=== PATIENT | female | born 1990 | race Caucasian/White ===

== ENCOUNTER 2018-03-12 10:04 | Emergency (ER) | payer OTHER ==
[2018-03-12 10:12] VITALS: TEMP 98
[2018-03-12] MEDS ORDERED: SODIUM CHLORIDE 0.9% 1,000 ML IV STA (11:18)
--- NOTE | 2018-03-12 11:19 | ED ---
General Adult HPI - General Chief complaint: Abdominal Pain Stated complaint: flank pain Time Seen by Provider: 03/12/18 10:58 Source: patient, RN notes reviewed Mode of arrival: wheelchair Limitations: no limitations - History of Present Illness Initial comments: Patient's a 27-year-old female presented to the emergency room today with chief complaint of increased urinary frequency and dysuria over the last day. She doesn't that the symptoms started yesterday afternoon. Patient does not that she's been experiencing some right flank pain today. Patient denies any other complaints or symptoms at this time. Patient denies any recent fever, chills, shortness of breath, chest pain, back pain, nausea or vomiting, numbness or tingling, constipation or diarrhea, headaches or visual changes, or any other complaints. - Related Data Home Medications Medication Instructions Recorded Confirmed Estradiol/Norgestimate [Prefest 1 tab PO DAILY 03/12/18 03/12/18 Tablet] Previous Rx's Medication Instructions Recorded Phenazopyridine [Pyridium] 100 mg PO TID 3 Days day 03/12/18 Sulfamethox-Tmp 800-160Mg [Bactrim 1 tab PO Q12HR #28 tab 03/12/18 DS 800-160 mg] Allergies Allergy/AdvReac Type Severity Reaction Status Date / Time No Known Allergies Allergy Verified 03/12/18 11:35 Review of Systems ROS Statement: Those systems with pertinent positive or pertinent negative responses have been documented in the HPI. ROS Other: All systems not noted in ROS Statement are negative. Past Medical History History of Any Multi-Drug Resistant Organisms: None Reported Past Surgical History: Section Past Psychological History: No Psychological Hx Reported Smoking Status: Current every day smoker Past Alcohol Use History: Occasional Past Drug Use History: None Reported General Exam - General Exam Comments Initial Comments: General: The patient is awake and alert, in no distress, and does not appear acutely ill. Eye: There is normal conjunctiva bilaterally. No signs of icterus. Ears, nose, mouth and throat: There are moist mucous membranes and no oral lesions. Neck: The neck is supple, there is no tenderness or JVD. Cardiovascular: There is a regular rate and rhythm. No murmur, rub or gallop is appreciated. Respiratory: Lungs are clear to auscultation, respirations are non-labored, breath sounds are equal. No wheezes, stridor, rales, or rhonchi. Gastrointestinal: Abdomen soft on palpation. Patient does have mild tenderness right lower quadrant. No rebound, guarding or CVA tenderness. Musculoskeletal: Normal ROM, no tenderness. Sensation intact. Strength 5/5. Pulses equal bilaterally 2+. Neurological: A&O x 3. CN II-XII intact, There are no obvious motor or sensory deficits. Coordination appears grossly intact. Speech is normal. Skin: Skin is warm and dry and no rashes or lesions are noted. Psychiatric: Cooperative, appropriate mood & affect, normal judgment. Limitations: no limitations Course Vital Signs 03/12/18 10:09 Temperature 98.0 F Pulse Rate 102 H Respiratory 20 Rate Blood Pressure 139/83 O2 Sat by Pulse 99 Oximetry Medical Decision Making - Medical Decision Making Patient labs been reviewed. Urinalysis does show evidence for urinary tract infection. She does admit to increased dysuria and frequency. Patient's vitals are stable. Patient given dose Rocephin here in the emergency room. Will be continued on antibiotics. Advised follow-up over the next 2 days to have urine re-check. Advised to return if symptoms increase or worsen. - Lab Data Result diagrams: 03/12/18 11:36 03/12/18 11:36 Lab Results 03/12/18 03/12/18 03/12/18 Range/Units 11:36 11:36 11:36 WBC 10.7 H (3.8-10.6) k/uL RBC 4.20 (3.80-5.40) m/uL Hgb 13.0 (11.4-16.0) gm/dL Hct 40.1 (34.0-46.0) % MCV 95.6 (80.0-100.0) fL MCH 30.9 (25.0-35.0) pg MCHC 32.3 (31.0-37.0) g/dL RDW 12.9 (11.5-15.5) % Plt Count 245 (150-450) k/uL Neutrophils % 73 % Lymphocytes % 19 % Monocytes % 4 % Eosinophils % 3 % Basophils % 0 % Neutrophils # 7.8 H (1.3-7.7) k/uL Lymphocytes # 2.0 (1.0-4.8) k/uL Monocytes # 0.5 (0-1.0) k/uL Eosinophils # 0.3 (0-0.7) k/uL Basophils # 0.0 (0-0.2) k/uL Sodium 139 (137-145) mmol/L Potassium 4.3 (3.5-5.1) mmol/L Chloride 110 H (98-107) mmol/L Carbon Dioxide 22 (22-30) mmol/L Anion Gap 7 mmol/L BUN 9 (7-17) mg/dL Creatinine 0.62 (0.52-1.04) mg/dL Est GFR (CKD-EPI)AfAm >90 (>60 ml/min/1.73 sqM) Est GFR (CKD-EPI)NonAf >90 (>60 ml/min/1.73 sqM) Glucose 122 H (74-99) mg/dL Calcium 9.5 (8.4-10.2) mg/dL Total Bilirubin 0.4 (0.2-1.3) mg/dL AST 28 (14-36) U/L ALT 19 (9-52) U/L Alkaline Phosphatase 39 (38-126) U/L Total Protein 6.7 (6.3-8.2) g/dL Albumin 4.1 (3.5-5.0) g/dL HCG, Quant <2.4 mIU/mL Urine Color Light Yellow Urine Appearance Cloudy H (Clear) Urine pH 6.0 (5.0-8.0) Ur Specific [place] 1.006 (1.001-1.035) Urine Protein Trace H (Negative) Urine Glucose (UA) Negative (Negative) Urine Ketones Negative (Negative) Urine Blood Moderate H (Negative) Urine Nitrite Negative (Negative) Urine Bilirubin Negative (Negative) Urine Urobilinogen <2.0 (<2.0) mg/dL Ur Leukocyte Esterase Moderate H (Negative) Urine RBC 1 (0-5) /hpf Urine WBC 18 H (0-5) /hpf Ur Squamous Epith Cells 6 H (0-4) /hpf Urine Bacteria Occasional H (None) /hpf Urine Mucus Rare H (None) /hpf Disposition Clinical Impression: Urinary tract infection Disposition: HOME SELF-CARE Condition: Good Instructions: Urinary Tract Infection in Women (ED) Additional Instructions: Please use medication as discussed. Please follow-up with family doctor in the next 2 days of symptoms have not improved. Please return to emergency room if the symptoms increase or worsen or for any other concerns. Prescriptions: Phenazopyridine [Pyridium] 100 mg PO TID 3 Days day Sulfamethox-Tmp 800-160Mg [Bactrim DS 800-160 mg] 1 tab PO Q12HR #28 tab Is patient prescribed a controlled substance at d/c from ED?: No Referrals: None,Stated [Primary Care Provider] - 1-2 days Raul Cox MD [STAFF PHYSICIAN] - 1-2 days Time of Disposition: 14:02
[2018-03-12 12:24] LABS: Basophils % (A) 0 %; Eosinophils # (A) 0.3 k/uL (0-0.7); Eosinophils % (A) 3 %; HCT 40.1 % (34.0-46.0); Lymphocytes % (A) 19 %; MCH 30.9 pg (25.0-35.0); MCHC 32.3 g/dL (31.0-37.0); MCV 95.6 fL (80.0-100.0); Mean Platelet Volume 7.2; Monocytes # (A) 0.5 k/uL (0-1.0); Monocytes % (A) 4 %; Neutrophils # (A) 7.8 k/uL (1.3-7.7); Neutrophils % (A) 73 %; Platelet Count 245 k/uL (150-450); RDW 12.9 % (11.5-15.5); WBC 10.7 k/uL (3.8-10.6)
[2018-03-12 12:34] LABS: ALT 19 U/L (9-52); AST 28 U/L (14-36); Albumin 4.1 g/dL (3.5-5.0); Alkaline Phosphatase 39 U/L (38-126); Anion Gap 7 mmol/L; Appearance,Urine Cloudy (Clear); Bacteria,Urine Occasional /hpf; Bilirubin,Urine Negative (Negative); Blood Urea Nitrogen 9 mg/dL (7-17); Blood,Urine Moderate (Negative); Calcium 9.5 mg/dL (8.4-10.2); Carbon Dioxide 22 mmol/L (22-30); Chloride 110 mmol/L (98-107); Color,Urine Light Yellow; Glucose 122 mg/dL (74-99); Glucose,Urine (UA) Negative (Negative); Ketones,Urine Negative (Negative); Leukocyte Esterase,Urine Moderate (Negative); Mucus,Urine Rare /hpf; Nitrite,Urine Negative (Negative); Potassium 4.3 mmol/L (3.5-5.1); Protein,Urine Trace (Negative); RBC,Urine 1 /hpf (0-5); Sodium 139 mmol/L (137-145); Specific Gravity,Urine 1.006 (1.001-1.035); Squamous Epithelial Cell,Urine 6 /hpf (0-4); Total Bilirubin 0.4 mg/dL (0.2-1.3); Total Protein 6.7 g/dL (6.3-8.2); Urobilinogen,Urine <2.0 mg/dL (<2.0); WBC,Urine 18 /hpf (0-5)
[2018-03-12 12:50] LABS: HCG,Quantitative Serum <2.4 mIU/mL
--- NOTE | 2018-03-12 13:29 | XR ---
Abdomen HISTORY: Right-sided abdomen pain, urinary tract infection Frontal view of the abdomen on 2 images Lung bases are clear. There is no evident pneumoperitoneum or bowel obstruction. Calcification in the left hemipelvis measures approximately 3 mm and is indeterminate. Findings may represent phleboliths . Bone mineralization is normal. IMPRESSION: Nonobstructive bowel gas pattern.
[2018-03-12 15:14] VITALS: BP 125/79; PULSE 64; RESP 16
== END 2018-03-12 15:14 | disposition home or self-care (01) ==
LOC: EC 10:04
DX: N39.0 Urinary tract infection, site not specified (principal); R10.31 Right lower quadrant pain; F17.200 Nicotine dependence, unspecified, uncomplicated; Z79.3 Long term (current) use of hormonal contraceptives
CPT/HCPCS: 36415; 80053; 85025; 81001; 84702; 74018; 99284; 96365; 96361; J0696

== ENCOUNTER 2020-11-26 16:50 | Emergency (ER) | payer OTHER ==
--- NOTE | 2020-11-26 17:19 | ED ---
General Adult HPI - General Chief complaint: Trauma Stated complaint: Punctured back of Mouth Time Seen by Provider: 11/26/20 17:11 Source: patient, RN notes reviewed, old records reviewed Mode of arrival: ambulatory Limitations: no limitations - History of Present Illness Initial comments: 30-year-old female with injury to the roof of her mouth. Patient was putting together a dog cage, slipped and had rammed a piece of this curved steel into the roof of her mouth. She had pain at the site of injury and pain in her right ear. Patient drover soaked emergency department and presented for mandatory triage. She states her tetanus is up-to-date. She's having no difficulty breathing. Her speech is normal. She has not eaten or had anything to drink since the injury. Patient is otherwise healthy. Denies current . - Related Data Home Medications Medication Instructions Recorded Confirmed Estradiol/Norgestimate [Prefest 1 tab PO DAILY 03/12/18 03/12/18 Tablet] Previous Rx's Medication Instructions Recorded Phenazopyridine [Pyridium] 100 mg PO TID 3 Days day 03/12/18 Sulfamethox-Tmp 800-160Mg [Bactrim 1 tab PO Q12HR #28 tab 03/12/18 DS 800-160 mg] Allergies Allergy/AdvReac Type Severity Reaction Status Date / Time No Known Allergies Allergy Verified 11/26/20 17:13 Review of Systems ROS Statement: Those systems with pertinent positive or pertinent negative responses have been documented in the HPI. ROS Other: All systems not noted in ROS Statement are negative. Past Medical History Past Medical History: No Reported History History of Any Multi-Drug Resistant Organisms: None Reported Past Surgical History: Section Additional Past Surgical History / Comment(s): Tubal ligation Past Psychological History: No Psychological Hx Reported Smoking Status: Current some day smoker Past Alcohol Use History: Occasional Past Drug Use History: None Reported General Exam Limitations: no limitations General appearance: alert, in no apparent distress Head exam: Present: atraumatic, normocephalic Eye exam: Present: normal appearance, PERRL ENT exam: Present: TM's normal bilaterally, other (Patient has a 6 mm abrasion to the posterior soft palate. Possible puncture wound. There is no significant surrounding swelling or erythema.) Neck exam: Present: normal inspection. Absent: tenderness, meningismus Respiratory exam: Present: normal lung sounds bilaterally, stridor. Absent: respiratory distress, wheezes Cardiovascular Exam: Present: regular rate, normal rhythm GI/Abdominal exam: Present: soft. Absent: distended, tenderness, guarding Extremities exam: Present: normal inspection, normal capillary refill. Absent: pedal edema Neurological exam: Present: alert, oriented X3, CN II-XII intact. Absent: motor sensory deficit Psychiatric exam: Present: normal affect, normal mood Skin exam: Present: warm, dry, intact. Absent: cyanosis, diaphoretic Course Vital Signs 11/26/20 17:04 Temperature 98.2 F Pulse Rate 72 Respiratory 18 Rate Blood Pressure 150/78 O2 Sat by Pulse 99 Oximetry Medical Decision Making - Medical Decision Making 30-year-old female with soft palate injury. On exam this does appear superficial. However CT was performed just to rule out deeper injury. There is no soft tissue injury noted on CT imaging. No bony abnormality. Patient wears observed in the emergency department with out any airway issues, stable vitals. She will use salt water rinse. Take Tylenol Motrin for pain. She has a follow- up with her primary care physician in 48 hours and will maintain this appointment. Return parameters discussed. Disposition Clinical Impression: Soft palate injury Disposition: HOME SELF-CARE Condition: Good Instructions (If sedation given, give patient instructions): Alba Baig (ED) Additional Instructions: Pleace return with worsening or changing pain any difficulty breathing or difficulty swallowing. Is patient prescribed a controlled substance at d/c from ED?: No Referrals: Naeem Wolf MD [Primary Care Provider] - 1-2 days Time of Disposition: 18:29
--- NOTE | 2020-11-26 17:56 | CT ---
EXAMINATION TYPE: CT brain wo con DATE OF EXAM: 11/26/2020 COMPARISON: None available. HISTORY: puncture wound to soft palate today CT DLP: 1291.4 mGycm. Automated Exposure Control for Dose Reduction was Utilized. TECHNIQUE: CT scan of the head is performed without contrast. FINDINGS: There is no acute intracranial hemorrhage, mass effect, or midline shift identified. The ventricles and sulci are within normal limits in size. The globes are intact and the visualized sin uses are clear. IMPRESSION: No acute intracranial hemorrhage, mass effect, or midline shift is seen.
--- NOTE | 2020-11-26 18:01 | CT ---
EXAMINATION TYPE: CT facial bones wo con DATE OF EXAM: 11/26/2020 COMPARISON: None available HISTORY: puncture wound to soft palate today CT DLP: 1291.4 mGycm Automated exposure control for dose reduction was used. TECHNIQUE: CT scan of the facial bones is performed without contrast, axial images are obtained, robi nal reformatted images are also reviewed. FINDINGS: There is no acute fracture or dislocation. The pterygoid plates, zygomatic arches, maxilla and mandib le are intact. The bilateral orbits are unremarkable. The paranasal sinuses and mastoid air cells are adequately aerated. There is no significant soft tissue abnormality. Impression: No significant abnormality.
[2020-11-26] MEDS: KETOROLAC 15 MG/ML 1 ML VIAL IM STA (18:22)
[2020-11-26 19:02] VITALS: BP 128/84; PULSE 64; RESP 16; TEMP 98.6
== END 2020-11-26 19:01 | disposition home or self-care (01) ==
LOC: EC 16:50
DX: S09.93XA Unspecified injury of face, initial encounter (principal); F17.200 Nicotine dependence, unspecified, uncomplicated; W22.8XXA Striking against or struck by other objects, initial encounter; Y93.89 Activity, other specified; Y92.009 Unspecified place in unspecified non-institutional (private) residence as the place of occurrence of the external cause
CPT/HCPCS: 99284; 96372; 70486; 70450; J1885